=== PATIENT | female | born 1975 | race African-American/Black ===

== ENCOUNTER 2022-05-11 21:31 | Emergency (ER) | payer MEDICAID ==
[~2022-05-11] VITALS: Ht 172.7 cm; Wt 100.0 kg
[2022-05-11 22:57] LABS: BASOPHILS % 0.9 % (0.0-2.0); HEMATOCRIT. 36.5 % (36.0-48.0); HEMOGLOBIN. 12.7 g/dL (12.0-16.0); LYMPHOCYTES % 17.1 % (20.0-50.0); MEAN CORPUSCULAR HEMOGLOBIN 29.4 pg (28.0-32.0); MEAN CORPUSCULAR VOLUME 84.7 fL (81.0-99.0); MEAN PLATELET VOLUME 8.5 fl (7.4-10.4); MONOCYTES % 12.6 % (2.0-8.0); NEUTROPHILS % 66.4 % (40.0-76.0); PLATELET 308 x1000/uL (130-400); RED BLOOD CELL COUNT 4.31 mill/uL (4.2-5.4); RED CELL DISTRIBUTION WIDTH 14.5 % (11.6-14.6)
[2022-05-11 23:00] LABS: CHLORIDE 111 mEq/L (98-107)
[2022-05-11] MEDS ORDERED: DILTIAZEM HCL 5MG/ML 5ML VIAL IV ONE (23:45)
[2022-05-12] MEDS ORDERED: DILTIAZEM HCL 60MG TABLET PO ONE
[2022-05-12 00:40] LABS: CLARITY URINE CLEAR (CLEAR); COLOR URINE YELLOW (YELLOW); KETONES URINE NEGATIVE (NEGATIVE); LEUKOCYTE ESTERASE URINE TRACE (NEGATIVE); NITRITE URINE NEGATIVE (NEGATIVE); OCCULT BLOOD URINE 3+ (NEGATIVE); PROTEIN URINE TRACE (NEGATIVE); SPECIFIC GRAVITY URINE 1.003 (1.005-1.030); UROBILINOGEN URINE 0.2 E.U./dL (0.2-1.0)
[2022-05-12 01:30] VITALS: BP 105/72
== END 2022-05-12 01:50 | disposition home or self-care (01) ==
LOC: ER 21:31
DX: I48.91 Unspecified atrial fibrillation (principal); R00.2 Palpitations; H40.9 Unspecified glaucoma
CPT/HCPCS: 36415; 71045; 80053; 81003; 84484; 85025; 93005; 96374; 99285; J3490

== ENCOUNTER 2023-04-09 19:41 | Emergency (ER) | payer MEDICAID ==
[~2023-04-09] VITALS: Ht 172.7 cm; Wt 105.0 kg
[2023-04-09 19:43] VITALS: BP 174/72; TEMP 98.1
[2023-04-09] MEDS ORDERED: PREDNISONE 20MG TABLET PO ONE (20:30)
[2023-04-09] MEDS ORDERED: ALBUTEROL (0.083%) 2.5MG/3ML NEB HHN ONE (20:30)
[2023-04-09 20:56] VITALS: PULSE 104; RESP 16; O2SAT 97
[2023-04-09] MEDS ORDERED: P20 MT (21:36)
== END 2023-04-09 22:03 | disposition home or self-care (01) ==
LOC: ER 19:41
DX: J45.901 Unspecified asthma with (acute) exacerbation (principal); H40.9 Unspecified glaucoma
CPT/HCPCS: 94640; 99283; J7512; Z7610 ×3